=== PATIENT | female | born 1970 | race African-American/Black ===

== ENCOUNTER 2016-07-15 13:49 | Emergency (ER) | payer MEDICARE, OTHER ==
[~2016-07-15] VITALS: Ht 152.4 cm; Wt 50.0 kg
[~2016-07-15 13:49] MED LIST: ERGO50000 PO; FENT25DI T-DERMAL; FEXO60TA PO; LISI-360 PO; OXYB5TAB PO; PROT40TA PO; SOMA350T PO
[2016-07-15 13:51] VITALS: BP 168/87; PULSE 138; RESP 18; TEMP 98; O2SAT 99
[2016-07-15 14:52] LABS: AUTOMATED NEUTROPHIL # 2.7 TH/MM3 (1.8-7.7); BASOPHIL % 0.6 % (0.0-2.0); EOSINOPHIL % 0.7 % (0.0-4.0); HEMO FLAGS DIFF FINAL; LYMPH % 22.6 % (9.0-44.0); LYMPHOCYTE # 0.9 TH/MM3 (1.0-4.8); MEAN CELL VOLUME 83.3 FL (80.0-100.0); MEAN CORPUSCULAR HEMOGLOBIN 28.1 PG (27.0-34.0); MEAN CORPUSCULAR HGB CONC 33.7 % (32.0-36.0); MONO % 11.5 % (0.0-8.0); NEUT % 64.6 % (16.0-70.0); PLATELET COUNT 183 TH/MM3 (150-450); RED BLOOD COUNT 4.68 MIL/MM3 (4.00-5.30); WHITE BLOOD COUNT 4.1 TH/MM3 (4.0-11.0)
[2016-07-15 15:18] LABS: ANION GAP 6 MEQ/L (5-15); BICARBONATE 29.2 MEQ/L (21.0-32.0); BLOOD UREA NITROGEN 6 MG/DL (7-18); CHLORIDE 103 MEQ/L (98-107); GLOMERULAR FILTRATION RATE 130 ML/MIN (>89); POTASSIUM 3.3 MEQ/L (3.5-5.1); SODIUM (NA) 138 MEQ/L (136-145)
[2016-07-15 15:24] LABS: CREATINE KINASE 85 U/L (26-192)
--- NOTE | 2016-07-15 15:25 | RADRPT ---
EXAM DATE/TIME: 07/15/2016 14:38 [facility] COMPARISON: CHEST SINGLE AP, May 03, 2016, 11:59. INDICATIONS : Chest pain, feeling of aspiration when eating. MEDICAL HISTORY : Gastroesophageal reflux disease. SURGICAL HISTORY : None. ENCOUNTER: Initial ACUITY: 1 week PAIN SCORE: 6/10 LOCATION: Bilateral chest FINDINGS: A single view of the chest demonstrates the lungs to be symmetrically aerated without evidence of mas s, infiltrate or effusion. The cardiomediastinal contours are unremarkable. Osseous structures are intact. Cervical fusion hardware is again noted. CONCLUSION: No acute disease. Dejon Noriega MD on July 15, 2016 at 15:22 Board Certified Radiologist. This report was verified electronically.
[2016-07-15 15:28] LABS: BLOOD, URINE NEG (NEG); GLUCOSE,URINE NEG (NEG); HYALINE CAST, URINE 6 /lpf (RARE); KETONE, URINE 40 mg/dL (NEG); MUCUS URINE MANY /lpf (OCC); NITRITE,URINE NEG (NEG); PH, URINE 5.5 (5.0-8.5); SQUAMOUS EPITHELIAL CELL URINE 1 /hpf (0-5); URINE COLOR YELLOW (YELLW/STRAW)
[2016-07-15 15:30] LABS: COMMENT (UR) CULT NOT INDICATED; CULTURE IF INDICATED CULT NOT INDICATED
--- NOTE | 2016-07-15 15:55 | PD ---
HPI Chief Complaint: GI Complaint Time Seen by Provider: 15:30 Travel History International Travel<30 days: No Contact w/Intl Traveler<30days: No Traveled to known affect area: No History of Present Illness HPI Patient is a 45-year-old female who presents emergency for evaluation of decreased appetite, dysphasia, and epigastric abdominal pain. Patient states that she has a foul taste in her mouth which caused her to not want to eat. She reports substernal burning as well. Patient is able to swallow foods that are "slimy". She states that she is unable to swallow foods that are hard. She is able to control her secretions. She is currently followed by a coal tower operator at the [facility] and is taking omeprazole 40 mg daily. Patient reports compliance with this medication. She cannot remember the name of her coal tower operator. She did state that her GI doctor told her to call the office when she experienced the symptoms again in order to have an upper endoscopy performed. Of note patient is also reporting mucousy bowel movements X4 today. PFSH Past Medical History Arthritis: Yes (possible rheumatoid arthritis) Asthma: Yes Blood Disorders: No Anxiety: Yes Depression: Yes Heart Rhythm Problems: No Cancer: No Cardiac Catheterization: No High Cholesterol: No Chest Pain: Yes Congestive Heart Failure: No Diabetes: No Diminished Hearing: No Endocrine: No GERD: Yes Hypertension: Yes Immune Disorder: No Musculoskeletal: No Neurologic: Yes (final cyanosis) Immunizations Current: No Pneumonia: Yes Thyroid Disease: No : 5 Para: 4 Miscarriage: 1 Tubal Ligation: Yes Past Surgical History Coronary Artery Bypass Graft: No Hysterectomy: Yes (partial) Neurologic Surgery: Yes (cervical FUSION 2013) Oral Surgery: Yes (WISDOM TOOTH REMOVAL) Other Surgery: Yes (toe surgery) Social History Alcohol Use: No Tobacco Use: No Substance Use: No Allergies-Medications (Allergen,Severity, Reaction): Coded Allergies: Cantaloupe (Verified Allergy, Severe, EDEMA THROAT, 07/15/16) Egg White (Verified Allergy, Severe, SHOCK, 07/15/16) PEANUTS (Verified Allergy, Severe, SHOCK, 07/15/16) Pea (Verified Allergy, Severe, THROAT CLOSES, 07/15/16) Shellfish (Verified Allergy, Severe, THROAT CLOSES, 07/15/16) Xochitl Nut (Verified Allergy, Intermediate, THROAT CLOSES, 07/15/16) Benadryl (Verified Allergy, Mild, ITCHY AND SWEATY, 07/15/16) Lortab (Verified Allergy, Mild, ITCHING AND SWEATING, 07/15/16) Bactrim (Verified Allergy, Unknown, Rash, 07/15/16) Tramadol (Verified Adverse Reaction, Severe, 07/15/16) FLUSHING Reported Meds & Prescriptions Reported Meds & Active Scripts Active Reported Omeprazole 40 Mg Cap 40 Mg PO DAILY Chelle Allergy (Fexofenadine HCl) 60 Mg Tab 60 Mg PO BID Fentanyl Patch 72 HR (Fentanyl) 25 Mcg/Hr Patch 25 Mcg T-DERMAL Q72H Drisdol (Ergocalciferol) 50,000 Unit Cap 50,000 Units PO Q7D Soma (Carisoprodol) 350 Mg Tab 350 Mg PO DAILY PRN Review of Systems Except as stated in HPI: all other systems reviewed are Neg General / Constitutional: No: Fever, Chills Cardiovascular: No: Chest Pain or Discomfort Respiratory: No: Shortness of Breath Gastrointestinal: Positive: Nausea, Diarrhea, Abdominal Pain (and epigastrium) , Changes in Bowel Habits, Indigestion, Dysphagia, Loss of Appetite, No: Vomiting Neurologic: Positive: Weakness Physical Exam Narrative GENERAL: Thin, well-developed, alert female. Resting comfortably in no acute distress. SKIN: Warm and dry. HEAD: Atraumatic. Normocephalic. EYES: Pupils equal and round. No scleral icterus. No injection or drainage. ENT: No nasal bleeding or discharge. Mucous membranes pink and moist. NECK: Trachea midline. No JVD. CARDIOVASCULAR: Tachycardic. No murmur appreciated. RESPIRATORY: No accessory muscle use. Clear to auscultation. Breath sounds equal bilaterally. No stridor noted GASTROINTESTINAL: Abdomen soft, tender to palpation in epigastrium, nondistended. Hepatic and splenic margins not palpable. Positive bowel sounds, no rebound, no guarding. MUSCULOSKELETAL: No obvious deformities. No clubbing. No cyanosis. No edema. NEUROLOGICAL: Awake and alert. No obvious cranial nerve deficits. Motor grossly within normal limits. Normal speech. PSYCHIATRIC: Appropriate mood and affect; insight and judgment normal. Data Data Last Documented VS Vital Signs Date Time Temp Pulse Resp B/P Pulse Ox O2 Delivery O2 Flow Rate FiO2 07/15/16 18:00 96 19 148/72 98 Room Air 07/15/16 13:51 98.0 Orders Electrocardiogram (07/15/16 ) Complete Blood Count With Diff (07/15/16 14:24) Basic Metabolic Panel (Bmp) (07/15/16 14:24) Ckmb (Isoenzyme) Profile (07/15/16 14:24) Troponin I (07/15/16 14:24) Chest, Single Ap (07/15/16 14:24) Urinalysis - C+S If Indicated (07/15/16 15:01) Soft Tissue Neck (07/15/16 ) Iv Access Insert/Monitor (07/15/16 15:47) Ranitidine Liq (Zantac Liq) (07/15/16 16:00) Potassium Chloride (Kcl) (07/15/16 16:30) Hepatic Functional Panel (07/15/16 14:36) Ondansetron Inj (Zofran Inj) (07/15/16 17:00) Lipase (07/15/16 17:09) Lipase (07/15/16 14:36) Labs Laboratory Tests Test 07/15/16 07/15/16 14:00 14:36 Urine Color YELLOW Urine Turbidity CLEAR Urine pH 5.5 Urine Specific [place] 1.008 Urine Protein NEG mg/dL Urine Glucose (UA) NEG mg/dL Urine Ketones 40 mg/dL Urine Occult Blood NEG Urine Nitrite NEG Urine Bilirubin NEG Urine Urobilinogen LESS THAN 2.0 MG/DL Urine Leukocyte Esterase NEG Urine RBC LESS THAN 1 /hpf Urine WBC 2 /hpf Urine Squamous Epithelial 1 /hpf Cells Urine Hyaline Casts 6 /lpf Urine Mucus MANY /lpf Microscopic Urinalysis Comment CULT NOT INDICATED White Blood Count 4.1 TH/MM3 Red Blood Count 4.68 MIL/MM3 Hemoglobin 13.2 GM/DL Hematocrit 39.0 % Mean Corpuscular Volume 83.3 FL Mean Corpuscular Hemoglobin 28.1 PG Mean Corpuscular Hemoglobin 33.7 % Concent Red Cell Distribution Width 14.0 % Platelet Count 183 TH/MM3 Mean Platelet Volume 9.0 FL Neutrophils (%) (Auto) 64.6 % Lymphocytes (%) (Auto) 22.6 % Monocytes (%) (Auto) 11.5 % Eosinophils (%) (Auto) 0.7 % Basophils (%) (Auto) 0.6 % Neutrophils # (Auto) 2.7 TH/MM3 Lymphocytes # (Auto) 0.9 TH/MM3 Monocytes # (Auto) 0.5 TH/MM3 Eosinophils # (Auto) 0.0 TH/MM3 Basophils # (Auto) 0.0 TH/MM3 CBC Comment DIFF FINAL Differential Comment Sodium Level 138 MEQ/L Potassium Level 3.3 MEQ/L Chloride Level 103 MEQ/L Carbon Dioxide Level 29.2 MEQ/L Anion Gap 6 MEQ/L Blood Urea Nitrogen 6 MG/DL Creatinine 0.60 MG/DL Estimat Glomerular Filtration 130 ML/MIN Rate Random Glucose 97 MG/DL Calcium Level 9.4 MG/DL Total Bilirubin 0.5 MG/DL Direct Bilirubin 0.2 MG/DL Indirect Bilirubin 0.3 MG/DL Aspartate Amino Transf 17 U/L (AST/SGOT) Alanine Aminotransferase 24 U/L (ALT/SGPT) Alkaline Phosphatase 47 U/L Total Creatine Kinase 85 U/L Troponin I LESS THAN 0.02 NG/ML Total Protein 8.1 GM/DL Albumin 4.4 GM/DL Lipase 63 U/L MDM Medical Decision Making Medical Screen Exam Complete: Yes Emergency Medical Condition: Yes Interpretation(s) Last Impressions Chest X-Ray 07/15/16 1424 Signed Impressions: Service Date/Time: Friday, July 15, 2016 14:38 - CONCLUSION: No acute disease. Dejon Noriega MD Soft Tissue Neck X-Ray 07/15/16 0000 Signed Impressions: Service Date/Time: Friday, July 15, 2016 16:04 - CONCLUSION: 1. Anterior cervical fusion hardware from C4 through C7. 2. Cervical spondylosis at C3- C4. 3. No acute fracture or prevertebral soft-tissue swelling. Dejon Noriega MD Laboratory Tests Test 07/15/16 07/15/16 14:00 14:36 Urine Color YELLOW Urine Turbidity CLEAR Urine pH 5.5 Urine Specific [place] 1.008 Urine Protein NEG mg/dL Urine Glucose (UA) NEG mg/dL Urine Ketones 40 mg/dL Urine Occult Blood NEG Urine Nitrite NEG Urine Bilirubin NEG Urine Urobilinogen LESS THAN 2.0 MG/DL Urine Leukocyte Esterase NEG Urine RBC LESS THAN 1 /hpf Urine WBC 2 /hpf Urine Squamous Epithelial 1 /hpf Cells Urine Hyaline Casts 6 /lpf Urine Mucus MANY /lpf Microscopic Urinalysis Comment CULT NOT INDICATED White Blood Count 4.1 TH/MM3 Red Blood Count 4.68 MIL/MM3 Hemoglobin 13.2 GM/DL Hematocrit 39.0 % Mean Corpuscular Volume 83.3 FL Mean Corpuscular Hemoglobin 28.1 PG Mean Corpuscular Hemoglobin 33.7 % Concent Red Cell Distribution Width 14.0 % Platelet Count 183 TH/MM3 Mean Platelet Volume 9.0 FL Neutrophils (%) (Auto) 64.6 % Lymphocytes (%) (Auto) 22.6 % Monocytes (%) (Auto) 11.5 % Eosinophils (%) (Auto) 0.7 % Basophils (%) (Auto) 0.6 % Neutrophils # (Auto) 2.7 TH/MM3 Lymphocytes # (Auto) 0.9 TH/MM3 Monocytes # (Auto) 0.5 TH/MM3 Eosinophils # (Auto) 0.0 TH/MM3 Basophils # (Auto) 0.0 TH/MM3 CBC Comment DIFF FINAL Differential Comment Sodium Level 138 MEQ/L Potassium Level 3.3 MEQ/L Chloride Level 103 MEQ/L Carbon Dioxide Level 29.2 MEQ/L Anion Gap 6 MEQ/L Blood Urea Nitrogen 6 MG/DL Creatinine 0.60 MG/DL Estimat Glomerular Filtration 130 ML/MIN Rate Random Glucose 97 MG/DL Calcium Level 9.4 MG/DL Total Bilirubin 0.5 MG/DL Direct Bilirubin 0.2 MG/DL Indirect Bilirubin 0.3 MG/DL Aspartate Amino Transf 17 U/L (AST/SGOT) Alanine Aminotransferase 24 U/L (ALT/SGPT) Alkaline Phosphatase 47 U/L Total Creatine Kinase 85 U/L Troponin I LESS THAN 0.02 NG/ML Total Protein 8.1 GM/DL Albumin 4.4 GM/DL Lipase 63 U/L Vital Signs Date Time Temp Pulse Resp B/P Pulse Ox O2 Delivery O2 Flow Rate FiO2 07/15/16 13:51 98.0 138 18 168/87 99 Room Air Differential Diagnosis Esophageal strictures versus GERD versus peptic ulcer disease versus mass versus other Narrative Course Patient is a 45-year-old female who presented to emergency department for evaluation of decreased appetite, difficulty swallowing, foul taste in her mouth , and epigastric abdominal pain. Patient has a history of acid reflux, she is currently on omeprazole and followed by GI. She said she is due to have an upper endoscopy performed. Patient is able to control her secretions. Initial EKG shows sinus tachycardia with a rate of 121. Patient placed on telemetry monitoring, continuous pulse oximetry, IV access is initiated. CBC is unremarkable, chemistry with potassium of 3.3, we'll give oral replacement. Urinalysis unremarkable. LFTs and lipase are pending. X-ray of the soft tissues of the neck are pending. X-ray of the soft tissues of the neck was negative for acute abnormality. LFTs and lipase are unremarkable. Patient will be discharged home, she is encouraged to follow-up with her GI doctor tomorrow. She is encouraged to return to emergency department for any new or worsening symptoms. She verbalized understanding of these instructions. She is to continue her home medications previously prescribed. She'll be provided with a prescription for ranitidine. Patient stable for discharge. Diagnosis Primary Impression: GERD (gastroesophageal reflux disease) Qualified Code: K21.9 - Gastroesophageal reflux disease, esophagitis presence not specified Referrals: Bottling Equipment Sales Representative 1 day Patient Instructions: Gastroesophageal Reflux Disease (ED), General Instructions Additional Instructions: Follow-up with her coal tower operator in 24 hours Return to emergency department for any new or worsening symptoms Take medications as directed Med/Other Pt SpecificInfo: Prescription(s) given Scripts Ranitidine 150 Mg [id number] Mg PO BID #60 TAB Ref 0 Prov:Casi Hudson 07/15/16 Disposition: 01 DISCHARGE HOME Condition: Stable Casi Hudson Jul 15, 2016 15:55
[2016-07-15 16:00] VITALS: BP 156/72; PULSE 105; RESP 20; O2SAT 97
[2016-07-15] MEDS ORDERED: RANITIDINE HCL SYRUP 150 MG/10 ML UDC PO ONE (16:00)
[2016-07-15] MEDS ORDERED: DRIS50002 PO (16:11)
[2016-07-15] MEDS ORDERED: FENT25DI T-DERMAL (16:11)
[2016-07-15] MEDS ORDERED: SOMA350T PO (16:11)
[2016-07-15] MEDS ORDERED: OMEP40CA2 PO (16:11)
[2016-07-15] MEDS ORDERED: ALLE60TA PO (16:11)
[2016-07-15] MEDS ORDERED: POTASSIUM CHLORIDE 10 MEQ CONTROLLED RELEASE TAB PO ONE (16:30)
--- NOTE | 2016-07-15 16:37 | PD ---
Data Data Last Documented VS Vital Signs Date Time Temp Pulse Resp B/P Pulse Ox O2 Delivery O2 Flow Rate FiO2 07/15/16 13:51 98.0 138 18 168/87 99 Room Air Orders Electrocardiogram (07/15/16 ) Complete Blood Count With Diff (07/15/16 14:24) Basic Metabolic Panel (Bmp) (07/15/16 14:24) Ckmb (Isoenzyme) Profile (07/15/16 14:24) Troponin I (07/15/16 14:24) Chest, Single Ap (07/15/16 14:24) Urinalysis - C+S If Indicated (07/15/16 15:01) Soft Tissue Neck (07/15/16 ) Hepatic Functional Panel (07/15/16 15:47) Lipase (07/15/16 15:47) Iv Access Insert/Monitor (07/15/16 15:47) Ranitidine Liq (Zantac Liq) (07/15/16 16:00) Potassium Chloride (Kcl) (07/15/16 16:30) Labs Laboratory Tests Test 07/15/16 07/15/16 14:00 14:36 Urine Color YELLOW Urine Turbidity CLEAR Urine pH 5.5 Urine Specific [place] 1.008 Urine Protein NEG mg/dL Urine Glucose (UA) NEG mg/dL Urine Ketones 40 mg/dL Urine Occult Blood NEG Urine Nitrite NEG Urine Bilirubin NEG Urine Urobilinogen LESS THAN 2.0 MG/DL Urine Leukocyte Esterase NEG Urine RBC LESS THAN 1 /hpf Urine WBC 2 /hpf Urine Squamous Epithelial 1 /hpf Cells Urine Hyaline Casts 6 /lpf Urine Mucus MANY /lpf Microscopic Urinalysis Comment CULT NOT INDICATED White Blood Count 4.1 TH/MM3 Red Blood Count 4.68 MIL/MM3 Hemoglobin 13.2 GM/DL Hematocrit 39.0 % Mean Corpuscular Volume 83.3 FL Mean Corpuscular Hemoglobin 28.1 PG Mean Corpuscular Hemoglobin 33.7 % Concent Red Cell Distribution Width 14.0 % Platelet Count 183 TH/MM3 Mean Platelet Volume 9.0 FL Neutrophils (%) (Auto) 64.6 % Lymphocytes (%) (Auto) 22.6 % Monocytes (%) (Auto) 11.5 % Eosinophils (%) (Auto) 0.7 % Basophils (%) (Auto) 0.6 % Neutrophils # (Auto) 2.7 TH/MM3 Lymphocytes # (Auto) 0.9 TH/MM3 Monocytes # (Auto) 0.5 TH/MM3 Eosinophils # (Auto) 0.0 TH/MM3 Basophils # (Auto) 0.0 TH/MM3 CBC Comment DIFF FINAL Differential Comment Sodium Level 138 MEQ/L Potassium Level 3.3 MEQ/L Chloride Level 103 MEQ/L Carbon Dioxide Level 29.2 MEQ/L Anion Gap 6 MEQ/L Blood Urea Nitrogen 6 MG/DL Creatinine 0.60 MG/DL Estimat Glomerular Filtration 130 ML/MIN Rate Random Glucose 97 MG/DL Calcium Level 9.4 MG/DL Total Creatine Kinase 85 U/L Troponin I LESS THAN 0.02 NG/ML MDM Supervised Visit with GIUSEPPE: Yes Narrative Course I, Dr. Carrera, have reviewed the advance practice practioner's documentation and am in agreement, met with the patient face to face, made the diagnosis, and the medical decision making was done by me. *My assessment and Findings: 45-year-old female here with complaint of burning epigastric discomfort, reflux, dysphasia. Symptoms have been present for the last 1.5 weeks. Patient states that soft, slightly foods or the easiest to swallow. She notes a history of difficulty swallowing intermittently, and attributes this to having previous cervical spine fusion. She has previously seen GI at [facility], mostly recently 1 month ago and is on a PPI which she states she has been compliant with. She never had an endoscopy. Patient's exam is unremarkable. She does have limited neck flexion due to previous cervical spine fusion. No thyromegaly she is able to tolerate her secretions and swallow water on exam without any difficulty. Symptoms sound most like reflux, differential includes gastritis, pancreatitis, hepatobiliary pathology, dysphasia, achalasia, stricture. If laboratory workup, imaging unremarkable will discharge to home with outpatient GI follow-up. Nga Carrera MD Jul 15, 2016 16:37
--- NOTE | 2016-07-15 16:40 | RADRPT ---
EXAM DATE/TIME: 07/15/2016 16:04 [facility] COMPARISON: No previous studies available for comparison. INDICATIONS : Dysphagia MEDICAL HISTORY : Gastroesophageal reflux disease. SURGICAL HISTORY : Fusion, cervical. ENCOUNTER: Initial ACUITY: 1 day PAIN SCORE: 6/10 LOCATION: Bilateral neck FINDINGS: Anterior cervical fusion hardware is noted from C4 through C7. There is no fracture or prevertebral soft-tissue swelling. Cervical spondylosis is noted at C3-C4. CONCLUSION: 1. Anterior cervical fusion hardware from C4 through C7. 2. Cervical spondylosis at C3-C4. 3. No acute fracture or prevertebral soft-tissue swelling. Dejon Noriega MD on July 15, 2016 at 16:24 Board Certified Radiologist. This report was verified electronically.
[2016-07-15 16:51] LABS: AST (GOT) 17 U/L (15-37)
[2016-07-15 16:52] LABS: TOTAL BILIRUBIN ADULT 0.5 MG/DL (0.2-1.0)
[2016-07-15] MEDS ORDERED: ONDANSETRON HCL 4 MG/2 ML VIAL IM ONE (17:00)
[2016-07-15 17:07] LABS: ALT (GPT) 24 U/L (10-53); INDIRECT BILIRUBIN 0.3 MG/DL (0.0-0.8)
[2016-07-15 17:08] LABS: ALKALINE PHOSPHATASE 47 U/L (45-117)
[2016-07-15 18:00] VITALS: BP 148/72; PULSE 96; RESP 19; O2SAT 98
[2016-07-15] MEDS ORDERED: RANI150T PO (18:14)
--- NOTE | 2016-07-15 21:33 | EKG ---
Date Performed: 07/15/2016 Time Performed: 14:14:54 PTAGE: 45 years EKG: SINUS TACHYCARDIA ABNORMAL RHYTHM ECG PREVIOUS TRACING : 05/03/2016 18.19 Compared to previous tracing, heart rate has increased. DOCTOR: Alex Mendoza Interpretating Date/Time 07/15/2016 21:31:56
== END 2016-07-15 18:27 | disposition home or self-care (01) ==
LOC: NEPC 13:49
DX: K21.9 Gastro-esophageal reflux disease without esophagitis (principal); R00.0 Tachycardia, unspecified; J45.909 Unspecified asthma, uncomplicated; I10 Essential (primary) hypertension; R13.10 Dysphagia, unspecified
CPT/HCPCS: 70360; 71010; 80048; 80076; 81001; 82550; 83690; 84484; 84703; 85025; 93005; 96372; 99284; J2405

== ENCOUNTER 2016-08-25 15:38 | Emergency (ER) | payer MEDICARE, OTHER ==
[~2016-08-25] VITALS: Ht 152.4 cm; Wt 52.0 kg
[~2016-08-25 15:38] MED LIST changes: +ALLE60TA PO; +DRIS50002 PO; -ERGO50000 PO; -FEXO60TA PO; -LISI-360 PO; +OMEP40CA2 PO; -OXYB5TAB PO; -PROT40TA PO; +RANI150T PO
[2016-08-25 15:41] VITALS: BP 181/74; PULSE 84; RESP 18; TEMP 97.4; O2SAT 100
[2016-08-25] MEDS ORDERED: PROZ20CA11 PO (15:56)
[2016-08-25] MEDS ORDERED: HYDR-3535 PO (15:57)
[2016-08-25 16:01] VITALS: BP 157/78; PULSE 95; RESP 16; O2SAT 100
[2016-08-25] MEDS ORDERED: ONDANSETRON ODT 4 MG TAB PO ONE (16:15)
--- NOTE | 2016-08-25 16:26 | PD ---
HPI Chief Complaint: Cold / Flu Symptoms Time Seen by Provider: 16:02 Travel History International Travel<30 days: No Contact w/Intl Traveler<30days: No Traveled to known affect area: No History of Present Illness HPI 45-year-old female presents with cough, congestion, bodyaches and nonbloody emesis over the past couple of weeks. She denies other concurrent complaints. She states she feels worse when she moves around. She denies other modifying factors. Duration is couple weeks. Quality is nonbloody. Severity is couple episodes. PFSH Past Medical History Arthritis: Yes (RA) Asthma: Yes Blood Disorders: No Anxiety: Yes Depression: Yes Heart Rhythm Problems: No Cancer: No Cardiac Catheterization: No High Cholesterol: No Chest Pain: Yes Congestive Heart Failure: No Diabetes: No Diminished Hearing: No Endocrine: No Gastrointestinal Disorders: Yes GERD: Yes Heparin Induced Thrombocytopen: No Hypertension: Yes Immune Disorder: No Musculoskeletal: No Neurologic: Yes (SPINAL STENOSIS) Immunizations Current: No Pneumonia: Yes Thyroid Disease: No Tetanus Vaccination: Unknown Influenza Vaccination: No ?: Not : 5 Para: 4 Miscarriage: 1 Tubal Ligation: Yes Past Surgical History Coronary Artery Bypass Graft: No Hysterectomy: Yes Neurologic Surgery: Yes (CERVICAL FUSION 2013) Oral Surgery: Yes (WISDOM TOOTH REMOVAL) Other Surgery: Yes (toe surgery) Family History Family Myocardial Infarction: Yes Social History Alcohol Use: No Tobacco Use: No Substance Use: No Allergies-Medications (Allergen,Severity, Reaction): Coded Allergies: Cantaloupe (Verified Allergy, Severe, EDEMA THROAT, 07/15/16) Egg White (Verified Allergy, Severe, SHOCK, 07/15/16) PEANUTS (Verified Allergy, Severe, SHOCK, 07/15/16) Pea (Verified Allergy, Severe, THROAT CLOSES, 07/15/16) Shellfish (Verified Allergy, Severe, THROAT CLOSES, 07/15/16) Xochitl Nut (Verified Allergy, Intermediate, THROAT CLOSES, 07/15/16) Benadryl (Verified Allergy, Mild, ITCHY AND SWEATY, 07/15/16) Lortab (Verified Allergy, Mild, ITCHING AND SWEATING, 07/15/16) Bactrim (Verified Allergy, Unknown, Rash, 07/15/16) Tramadol (Verified Adverse Reaction, Severe, 07/15/16) FLUSHING Reported Meds & Prescriptions Reported Meds & Active Scripts Active Zofran Odt (Ondansetron Odt) 4 Mg Tab 4 Mg SL Q6HR PRN Ranitidine (Ranitidine HCl) 150 Mg Tab 150 Mg PO BID Reported Lortab (Hydrocodone-Acetaminophen) 10-325 Mg Tab 1 Tab PO Q4H PRN Prozac (Fluoxetine HCl) 20 Mg Cap 30 Mg PO DAILY Omeprazole 40 Mg Cap 40 Mg PO DAILY Chelle Allergy (Fexofenadine HCl) 60 Mg Tab 60 Mg PO BID Fentanyl Patch 72 HR (Fentanyl) 25 Mcg/Hr Patch 25 Mcg T-DERMAL Q72H Drisdol (Ergocalciferol) 50,000 Unit Cap 50,000 Units PO Q7D Soma (Carisoprodol) 350 Mg Tab 350 Mg PO DAILY PRN Review of Systems Except as stated in HPI: all other systems reviewed are Neg Physical Exam Narrative General: No apparent distress, well appearing ENT: Posterior oropharyngx clear without exudate or erythema, external auditory canals are normal. Bilateral TM clear, rhinorrhea noted Neck: Neck is supple, no meningeal signs, trachea is midline Cardiovascular: Regular rate and rhythm Lungs: No increased respiratory effort noted, CTA bilaterally Abdomen: Soft, NT, ND, no rebound or guarding Back: No step-offs, midline spine nontender, no CVA tenderness Extremities: No edema Neuro: Awake, motor and sensation grossly intact, normal speech Data Data Last Documented VS Vital Signs Date Time Temp Pulse Resp B/P Pulse Ox O2 Delivery O2 Flow Rate FiO2 08/25/16 16:01 95 16 157/78 100 Room Air 08/25/16 15:41 97.4 Orders Chest, Pa & Lat (08/25/16 ) Influenzae A/B Antigen (08/25/16 16:02) Ondansetron Odt (Zofran Odt) (08/25/16 16:15) MDM Medical Decision Making Medical Screen Exam Complete: Yes Emergency Medical Condition: Yes Medical Record Reviewed: Yes (pmh confirmed) Interpretation(s) Last 24 hours Impressions Chest X-Ray 08/25/16 0000 Signed Impressions: Service Date/Time: Thursday, August 25, 2016 16:24 - CONCLUSION: No acute disease. Mau Stark MD Differential Diagnosis Influenza, pneumonia, gastroenteritis... Narrative Course Will check influenza, chest x-ray and dose with Zofran and reevaluate cxr and flu are negative, no emesis here, Patient denies any new complaints and states that they are feeling better. Patient happy with care, all questions answered. Patient knows that follow up is incumbent on them and to return to the emergency room immediately if new or worsening symptoms develop. Patient given strict return precautions, vitals reviewed and are normal, agrees to further workup as an outpatient. Diagnosis Primary Impression: Upper respiratory infection Qualified Code: J06.9 - Upper respiratory tract infection, unspecified type Additional Impression: Vomiting Qualified Code: R11.2 - Non-intractable vomiting with nausea, unspecified vomiting type Referrals: Primary Care Physician call for appointment Patient Instructions: General Instructions Additional Instructions: return as needed, supportive care, zofran as needed for nausea Med/Other Pt SpecificInfo: Prescription(s) given Scripts Ondansetron Odt (Zofran Odt)4 Mg Tab4 Mg SL Q6HR PRN (Nausea/Vomiting) #10 TAB Prov:Meagan Haynes MD 08/25/16 Disposition: DISCHARGE HOME Condition: Stable Meagan Haynes MD Aug 25, 2016 16:26
--- NOTE | 2016-08-25 17:09 | RADRPT ---
EXAM DATE/TIME: 08/25/2016 16:24 [facility] COMPARISON: CHEST PA & LAT, August 24, 2013, 9:43. INDICATIONS : Cough and flu like symptoms MEDICAL HISTORY : Gastroesophageal reflux disease SURGICAL HISTORY : None. ENCOUNTER: Initial ACUITY: 1 day PAIN SCORE: 7/10 LOCATION: Bilateral chest FINDINGS: PA and lateral views of the chest demonstrate the lungs to be symmetrically aerated without evidence of mass, infiltrate or effusion. The cardiomediastinal contours are unremarkable. Osseous structure s are intact. CONCLUSION: No acute disease. Mau Stark MD on August 25, 2016 at 17:06 Board Certified Radiologist. This report was verified electronically.
[2016-08-25] MEDS ORDERED: ZOFR4TAB3 SL (17:15)
== END 2016-08-25 17:44 | disposition home or self-care (01) ==
LOC: NEPA 15:38
DX: J06.9 Acute upper respiratory infection, unspecified (principal); R11.10 Vomiting, unspecified; J45.909 Unspecified asthma, uncomplicated; I10 Essential (primary) hypertension; K21.9 Gastro-esophageal reflux disease without esophagitis
CPT/HCPCS: 71020; 87804; 99284

== ENCOUNTER 2017-02-03 11:23 | Emergency (ER) | payer OTHER, MEDICAID ==
[~2017-02-03] VITALS: Ht 152.4 cm; Wt 50.0 kg
[~2017-02-03 11:23] MED LIST changes: +HYDR-3535 PO; +PROZ20CA11 PO; +ZOFR4TAB3 SL
[2017-02-03 11:24] VITALS: BP 189/78; PULSE 84; RESP 24; TEMP 97.8; O2SAT 100
[2017-02-03] MEDS ORDERED: METHOCARBAMOL 500 MG TAB PO ONE (12:00)
[2017-02-03] MEDS ORDERED: SODIUM CHLORIDE 0.9% FLUSH 10 ML FLUSH IVF PRN (12:00)
[2017-02-03 12:19] LABS: BACTERIA, URINE RARE /hpf; BLOOD, URINE NEG (NEG); COMMENT (UR) CULTURE INDICATED; CULTURE IF INDICATED CULTURE INDICATED; GLUCOSE,URINE NEG (NEG); KETONE, URINE NEG (NEG); MUCUS URINE FEW /lpf (OCC); NITRITE,URINE NEG (NEG); PH, URINE 6.5 (5.0-8.5); SQUAMOUS EPITHELIAL CELL URINE 11 /hpf (0-5); URINE COLOR YELLOW (YELLW/STRAW)
[2017-02-03 12:31] VITALS: O2SAT 97
[2017-02-03 12:47] LABS: AUTOMATED NEUTROPHIL # 3.1 TH/MM3 (1.8-7.7); BASOPHIL % 0.6 % (0.0-2.0); EOSINOPHIL % 0.9 % (0.0-4.0); HEMATOCRIT 38.1 % (35.0-46.0); HEMO FLAGS DIFF FINAL; LYMPH % 25.8 % (9.0-44.0); LYMPHOCYTE # 1.2 TH/MM3 (1.0-4.8); MEAN CELL VOLUME 84.5 FL (80.0-100.0); MEAN CORPUSCULAR HEMOGLOBIN 28.6 PG (27.0-34.0); MEAN CORPUSCULAR HGB CONC 33.9 % (32.0-36.0); MONO % 9.5 % (0.0-8.0); NEUT % 63.2 % (16.0-70.0); PLATELET COUNT 190 TH/MM3 (150-450); RED BLOOD COUNT 4.51 MIL/MM3 (4.00-5.30); RED CELL DISTRIBUTION WIDTH 14.1 % (11.6-17.2); WHITE BLOOD COUNT 4.8 TH/MM3 (4.0-11.0)
[2017-02-03] MEDS ORDERED: CEPH-460 PO (12:48)
--- NOTE | 2017-02-03 12:48 | PD ---
HPI Chief Complaint: Flank/Kidney Pain Time Seen by Provider: 11:38 Travel History International Travel<30 days: No Contact w/Intl Traveler<30days: No Traveled to known affect area: No History of Present Illness HPI 46-year-old female with history of spinal stenosis who presents the emergency department with complaint of right sided pain. Patient has had approximate 4 days of pain in the right flank/axillary region that extends into the right chest, right back and right shoulder. This is made worse with movement, and with deep inspiration. Patient states that she has been having some spasms in her right shoulder. She sees pain management and is on a fentanyl patch, Lortab. Historically she was also on Soma but was taken off of this approximately one month ago. She states that since, she has been having more spasm-type pain in the back, but nothing this localized. She denies any history of DVT, PE, leg swelling, recent travel. She notes some urinary frequency, but no dysuria. PFSH Past Medical History Arthritis: Yes (RA) Asthma: Yes Blood Disorders: No Anxiety: Yes Depression: Yes Heart Rhythm Problems: No Cancer: No Cardiac Catheterization: No High Cholesterol: No Chest Pain: Yes Congestive Heart Failure: No Diabetes: No Diminished Hearing: No Endocrine: No Gastrointestinal Disorders: Yes GERD: Yes Heparin Induced Thrombocytopen: No Hypertension: Yes Immune Disorder: No Musculoskeletal: No Neurologic: Yes (SPINAL STENOSIS) Immunizations Current: No Pneumonia: Yes Thyroid Disease: No ?: Not : 5 Para: 4 Miscarriage: 1 Tubal Ligation: Yes Past Surgical History Coronary Artery Bypass Graft: No Hysterectomy: Yes Neurologic Surgery: Yes (CERVICAL FUSION 2013) Oral Surgery: Yes (WISDOM TOOTH REMOVAL) Other Surgery: Yes Social History Alcohol Use: No Tobacco Use: No Substance Use: No Allergies-Medications (Allergen,Severity, Reaction): Coded Allergies: Cantaloupe (Verified Allergy, Severe, EDEMA THROAT, 02/03/17) Egg White (Verified Allergy, Severe, SHOCK, 02/03/17) PEANUTS (Verified Allergy, Severe, SHOCK, 02/03/17) Pea (Verified Allergy, Severe, THROAT CLOSES, 02/03/17) Shellfish (Verified Allergy, Severe, THROAT CLOSES, 02/03/17) Xochitl Nut (Verified Allergy, Intermediate, THROAT CLOSES, 02/03/17) Benadryl (Verified Allergy, Mild, ITCHY AND SWEATY, 02/03/17) Bactrim (Verified Allergy, Unknown, Rash, 02/03/17) Tramadol (Verified Adverse Reaction, Severe, 02/03/17) FLUSHING Reported Meds & Prescriptions Reported Meds & Active Scripts Active Keflex (Cephalexin) 500 Mg Capsule 500 Mg PO TID 7 Days Ranitidine (Ranitidine HCl) 150 Mg Tab 150 Mg PO BID Reported Lortab (Hydrocodone-Acetaminophen) 10-325 Mg Tab 1 Tab PO Q4H PRN Prozac (Fluoxetine HCl) 20 Mg Cap 30 Mg PO DAILY Chelle Allergy (Fexofenadine HCl) 60 Mg Tab 60 Mg PO BID Fentanyl Patch 72 HR (Fentanyl) 25 Mcg/Hr Patch 25 Mcg T-DERMAL Q72H Review of Systems Except as stated in HPI: all other systems reviewed are Neg Physical Exam Narrative GENERAL: Well-appearing female appearing younger than stated age in no acute distress SKIN: Focused skin assessment warm/dry. HEAD: Normocephalic. EYES: No scleral icterus. No injection or drainage. ENT: Mucous membranes pink and moist. NECK: Supple CARDIOVASCULAR: Regular rate and rhythm. No murmur appreciated. Tenderness to palpation of the right superior lateral chest wall. RESPIRATORY: No accessory muscle use. Clear to auscultation. Breath sounds equal bilaterally. GASTROINTESTINAL: Abdomen soft, non-tender, nondistended. Mild right CVA tenderness. MUSCULOSKELETAL: Pain with range of motion of the right shoulder, tenderness to palpation. Range of motion and strength are intact. Patient does have tenderness to palpation of the right scapular region, right anterior chest and in the right axilla. NEUROLOGICAL: Awake and alert. Normal speech. PSYCHIATRIC: Appropriate mood and affect; insight and judgment normal. Data Data Last Documented VS Vital Signs Date Time Temp Pulse Resp B/P Pulse Ox O2 Delivery O2 Flow Rate FiO2 02/03/17 14:40 89 17 132/65 99 Room Air 02/03/17 11:24 97.8 Orders Urinalysis - C+S If Indicated (02/03/17 11:40) Ed Urine Pregnancytest Poc (02/03/17 11:40) Electrocardiogram (02/03/17 11:58) Complete Blood Count With Diff (02/03/17 11:58) Comprehensive Metabolic Panel (02/03/17 11:58) D-Dimer (02/03/17 11:58) Lipase (02/03/17 11:58) Iv Access Insert/Monitor (02/03/17 11:58) Oximetry (02/03/17 11:58) Sodium Chloride 0.9% Flush (Ns Flush) (02/03/17 12:00) Methocarbamol (Robaxin) (02/03/17 12:00) Urine Culture (02/03/17 11:50) Ct Pulmonary Angiogram (02/03/17 ) Iohexol 350 Inj (Omnipaque 350 Inj) (02/03/17 15:13) Labs Laboratory Tests Test 02/03/17 02/03/17 11:50 12:30 Urine Color YELLOW Urine Turbidity HAZY Urine pH 6.5 Urine Specific [place] 1.014 Urine Protein TRACE mg/dL Urine Glucose (UA) NEG mg/dL Urine Ketones NEG mg/dL Urine Occult Blood NEG Urine Nitrite NEG Urine Bilirubin NEG Urine Urobilinogen 2.0 MG/DL Urine Leukocyte Esterase SMALL Urine RBC LESS THAN 1 /hpf Urine WBC 10 /hpf Urine Squamous Epithelial 11 /hpf Cells Urine Bacteria RARE /hpf Urine Mucus FEW /lpf Microscopic Urinalysis Comment CULTURE INDICATED White Blood Count 4.8 TH/MM3 Red Blood Count 4.51 MIL/MM3 Hemoglobin 12.9 GM/DL Hematocrit 38.1 % Mean Corpuscular Volume 84.5 FL Mean Corpuscular Hemoglobin 28.6 PG Mean Corpuscular Hemoglobin 33.9 % Concent Red Cell Distribution Width 14.1 % Platelet Count 190 TH/MM3 Mean Platelet Volume 8.9 FL Neutrophils (%) (Auto) 63.2 % Lymphocytes (%) (Auto) 25.8 % Monocytes (%) (Auto) 9.5 % Eosinophils (%) (Auto) 0.9 % Basophils (%) (Auto) 0.6 % Neutrophils # (Auto) 3.1 TH/MM3 Lymphocytes # (Auto) 1.2 TH/MM3 Monocytes # (Auto) 0.5 TH/MM3 Eosinophils # (Auto) 0.0 TH/MM3 Basophils # (Auto) 0.0 TH/MM3 CBC Comment DIFF FINAL Differential Comment D-Dimer Quantitative (PE/DVT) 0.62 MG/L FEU Sodium Level 139 MEQ/L Potassium Level 3.5 MEQ/L Chloride Level 103 MEQ/L Carbon Dioxide Level 29.4 MEQ/L Anion Gap 7 MEQ/L Blood Urea Nitrogen 8 MG/DL Creatinine 0.72 MG/DL Estimat Glomerular Filtration 105 ML/MIN Rate Random Glucose 85 MG/DL Calcium Level 10.3 MG/DL Total Bilirubin 0.4 MG/DL Aspartate Amino Transf 23 U/L (AST/SGOT) Alanine Aminotransferase 23 U/L (ALT/SGPT) Alkaline Phosphatase 57 U/L Total Protein 9.2 GM/DL Albumin 4.4 GM/DL Lipase 83 U/L [facility] Medical Decision Making Medical Screen Exam Complete: Yes Emergency Medical Condition: Yes Medical Record Reviewed: Yes Differential Diagnosis 46-year-old female with history of chronic back pain due to spinal stenosis here with 4 days of right sided chest/back/shoulder/flank pain worse with movement and inspiration. Her pain is quite reproducible on exam and my strong suspicion is that this is musculoskeletal. Differential includes PE, ureterolithiasis, UTI/pyelonephritis. She does not have any respiratory symptoms to suspect pneumonia. Narrative Course Patient placed on monitor, IV established and blood obtained. A twelve-lead EKG shows sinus rhythm without notable ST or T-wave abnormalities and normal intervals. Patient given Robaxin. CBC, CMP, lipase, d-dimer, urinalysis and urine test were notable for leukocyte Estrace, with white cells and bacteria in the urine. D-dimer elevated 0.62. CT pulmonary angiogram was negative. Patient reassured, treated for musculoskeletal etiology and discharged home. Diagnosis Primary Impression: Musculoskeletal chest pain Additional Impression: UTI (urinary tract infection) Qualified Code: N30.00 - Acute cystitis without hematuria Referrals: Pain Management call for appointment Additional Instructions: Finish antibiotics for urinary tract infection as prescribed. Follow-up with pain management for further management of chronic pain. Med/Other Pt SpecificInfo: Prescription(s) given Scripts Cephalexin (Keflex)500 Mg [id number] Mg PO TID 7 Days Ref 0 Prov:Nga Carrera MD 02/03/17 Disposition: 01 DISCHARGE HOME Condition: Stable Nga Carrera MD Feb 03, 2017 12:48
[2017-02-03 13:12] LABS: ALT (GPT) 23 U/L (10-53); ANION GAP 7 MEQ/L (5-15); AST (GOT) 23 U/L (15-37); BICARBONATE 29.4 MEQ/L (21.0-32.0); BLOOD UREA NITROGEN 8 MG/DL (7-18); CHLORIDE 103 MEQ/L (98-107); GLOMERULAR FILTRATION RATE 105 ML/MIN (>89); POTASSIUM 3.5 MEQ/L (3.5-5.1); SODIUM (NA) 139 MEQ/L (136-145)
[2017-02-03 13:14] LABS: ALKALINE PHOSPHATASE 57 U/L (45-117); TOTAL BILIRUBIN ADULT 0.4 MG/DL (0.2-1.0)
[2017-02-03 14:40] VITALS: BP 132/65; PULSE 89; RESP 17; O2SAT 99
[2017-02-03] MEDS ORDERED: IOHEXOL 350 MG/ML 10 ML VIAL (for RAD DIAG) IV ONE (15:13)
--- NOTE | 2017-02-03 15:23 | RADRPT ---
EXAM DATE/TIME: 02/03/2017 15:05 [facility] COMPARISON: No previous studies available for comparison. INDICATIONS : Chest pain. IV CONTRAST: 75 cc Omnipaque 350 (iohexol) IV RADIATION DOSE: 21.30 CTDIvol (mGy) MEDICAL HISTORY : Spinal stenosis. SURGICAL HISTORY : Hysterectomy. Cervical fusion. ENCOUNTER: Initial ACUITY: 1 day PAIN SCALE: 4/10 LOCATION: Right chest TECHNIQUE: Volumetric scanning of the chest was performed using a pulmonary embolism protocol MIP images were re constructed. Using automated exposure control and adjustment of the mA and/or kV according to patien t size, radiation dose was kept as low as reasonably achievable to obtain optimal diagnostic quality images. DICOM format image data is available electronically for review and comparison. Follow-up recommendations for incidentally detected pulmonary nodules are based at a minimum on nodul e size and patient risk factors according to Fleischner Society Guidelines. FINDINGS: PULMONARY ARTERIES: No filling defects are seen in the pulmonary arteries through the segmental level. LUNGS: There is no consolidation or pneumothorax . No concerning pulmonary nodule is visualized. PLEURAE: There is no pleural thickening or pleural effusion. MEDIASTINUM: There is good visualization of the great vessels of the middle mediastinum. No evidence of mediastin al or hilar adenopathy/mass. MUSCULOSKELETAL: Mild scoliosis and degenerative changes of the thoracic spine are noted. MISCELLANEOUS: The visualized upper abdominal organs demonstrate no acute abnormality. CONCLUSION: 1. No evidence of pulmonary embolism. 2. No focal pulmonary infiltrate or pulmonary vascular congestion. 3. Degenerative changes and scoliosis of the thoracic spine. Dejon Noriega MD on February 03, 2017 at 15:18 Board Certified Radiologist. This report was verified electronically.
--- NOTE | 2017-02-04 15:44 | EKG ---
Date Performed: 02/03/2017 Time Performed: 12:22:39 PTAGE: 46 years EKG: Sinus rhythm POSSIBLE RIGHT VENTRICULAR CONDUCTION DELAY BORDERLINE ECG PREVIOUS TRACING : 07/15/2016 14.14 Compared to previous tracing, sinus rate has slowed. DOCTOR: Yosvany Greene Interpretating Date/Time 02/04/2017 15:43:51
== END 2017-02-03 15:56 | disposition home or self-care (01) ==
LOC: NEPD 11:23
DX: R07.89 Other chest pain (principal); N30.00 Acute cystitis without hematuria; B96.89 Other specified bacterial agents as the cause of diseases classified elsewhere
CPT/HCPCS: 71275; 80053; 81001; 83690; 84703; 85025; 85379; 87086; 93005; 99285; Q9967

== ENCOUNTER 2017-03-25 11:13 | Emergency (ER) | payer OTHER, MEDICAID ==
[~2017-03-25] VITALS: Ht 152.4 cm; Wt 50.0 kg
[~2017-03-25 11:13] MED LIST changes: +CEPH-460 PO; -DRIS50002 PO; -OMEP40CA2 PO; -SOMA350T PO; -ZOFR4TAB3 SL
[2017-03-25 11:15] VITALS: BP 169/80; PULSE 98; RESP 24; TEMP 98.7; O2SAT 100
[2017-03-25] MEDS ORDERED: PERC10TA27 PO (11:59)
--- NOTE | 2017-03-25 12:18 | PD ---
HPI . nausea and vomiting since last night Chief Complaint: GI Complaint Time Seen by Provider: 12:18 Travel History International Travel<30 days: No Contact w/Intl Traveler<30days: No Traveled to known affect area: No History of Present Illness HPI 46-year-old female with past medical history of GERD, spinal stenosis and multiple allergies here with complaints of nausea and vomiting since last night. Patient tells me since yesterday evening she has vomited approximately 6 times. She tells me that she felt like she had flulike symptoms late last week, therefore went to her doctor at [facility] and was given vitamin C, Robitussin and some medication that starts with S. She is uncertain of the exact name of the medication and tells me that it even cause her a localized reaction to her face. She was doing fine, and yesterday she developed sudden onset of nausea and vomiting. She also reports some abdominal discomfort. She says some of her symptoms feel GERD like, however it's more pronounced than usual. She denies any chest pain, sob, or other symptoms. PFSH Past Medical History Arthritis: Yes (RA) Asthma: Yes Blood Disorders: No Anxiety: Yes Depression: Yes Heart Rhythm Problems: No Cancer: No Cardiac Catheterization: No Cardiovascular Problems: Yes (htn) High Cholesterol: No Chest Pain: Yes Congestive Heart Failure: No Diabetes: No Diminished Hearing: No Endocrine: No Gastrointestinal Disorders: Yes GERD: Yes Genitourinary: Yes (UTI) Heparin Induced Thrombocytopen: No Hypertension: Yes Immune Disorder: No Musculoskeletal: No Neurologic: Yes (SPINAL STENOSIS) Psychiatric: Yes (WEEKLY THERAPY) Respiratory: Yes (ASTHMA) Immunizations Current: No Pneumonia: Yes Thyroid Disease: No Tetanus Vaccination: < 5 Years ?: Not : 5 Para: 4 Miscarriage: 1 Tubal Ligation: Yes Past Surgical History Coronary Artery Bypass Graft: No Hysterectomy: Yes Neurologic Surgery: Yes (CERVICAL FUSION 2013) Oral Surgery: Yes (WISDOM TOOTH REMOVAL) Other Surgery: Yes Family History Family Myocardial Infarction: Yes Social History Alcohol Use: No Tobacco Use: No Substance Use: No Allergies-Medications (Allergen,Severity, Reaction): Coded Allergies: egg (Unverified Allergy, Severe, SHOCK, 03/25/17) melon (Unverified Allergy, Severe, EDEMA THROAT, 03/25/17) peanut (Unverified Allergy, Severe, SHOCK, 03/25/17) peas (Unverified Allergy, Severe, THROAT CLOSES, 03/25/17) shellfish derived (Unverified Allergy, Severe, THROAT CLOSES, 03/25/17) hazelnut (Unverified Allergy, Intermediate, THROAT CLOSES, 03/25/17) diphenhydramine (Unverified Allergy, Mild, ITCHY AND SWEATY, 03/25/17) sulfamethoxazole (Unverified Allergy, Unknown, Rash, 03/25/17) trimethoprim (Unverified Allergy, Unknown, Rash, 03/25/17) tramadol (Unverified Adverse Reaction, Severe, 03/25/17) FLUSHING Reported Meds & Prescriptions Reported Meds & Active Scripts Active Zofran Odt (Ondansetron Odt) 4 Mg Tab 4 Mg SL Q8HR PRN Ranitidine (Ranitidine HCl) 150 Mg Tab 150 Mg PO BID Reported Percocet (Oxycodone-Acetaminophen) 10-325 mg Tab 1 Tab PO Q4H PRN Prozac (Fluoxetine HCl) 20 Mg Cap 30 Mg PO DAILY Chelle Allergy (Fexofenadine HCl) 60 Mg Tab 60 Mg PO BID Fentanyl Patch 72 HR (Fentanyl) 25 Mcg/Hr Patch 25 Mcg T-DERMAL Q72H Review of Systems General / Constitutional: No: Fever Eyes: No: Visual changes HENT: No: Headaches Cardiovascular: No: Chest Pain or Discomfort Respiratory: No: Shortness of Breath Gastrointestinal: Positive: Nausea, Vomiting, No: Abdominal Pain Genitourinary: No: Dysuria Musculoskeletal: No: Pain Skin: No Rash Neurologic: No: Weakness Psychiatric: No: Depression Endocrine: No: Polydipsia Hematologic/Lymphatic: No: Easy Bruising Physical Exam Narrative GENERAL: AAO x 3, no acute distress, Well-nourished, well-developed patient. SKIN: Warm and dry. No visible rashes or bruising. HEAD: Normocephalic and atraumatic. EYES: No scleral icterus. No injection or drainage. EOM intact, PERRLA ENT: No nasal drainage noted. Mucous membranes pink. Airway patent. NECK: Supple, trachea midline. No JVD. CARDIOVASCULAR: Regular rate and rhythm without murmurs, gallops, or rubs. RESPIRATORY: Breath sounds equal bilaterally. No accessory muscle use. No rhonchi or rales. GASTROINTESTINAL: tenderness in the RLQ and some guarding on exam; EXTREMITIES: No cyanosis or edema. BACK: No obvious deformity. No CVA tenderness. NEURO: CN II-12 intact, fancy wire drawer strength normal b/l, UE and LE 5/5, no focal deficits PSYCH: AAO x 3, normal affect. Data Data Last Documented VS Vital Signs Date Time Temp Pulse Resp B/P (MAP) Pulse Ox O2 Delivery O2 Flow Rate FiO2 03/25/17 12:29 99 03/25/17 11:15 98.7 98 24 Room Air Orders Orders Complete Blood Count With Diff (03/25/17 12:23) Comprehensive Metabolic Panel (03/25/17 12:23) Lipase (03/25/17 12:23) Urinalysis - C+S If Indicated (03/25/17 12:23) Ct Abd/Pel W Iv Contrast(Rout) (03/25/17 12:23) Iv Access Insert/Monitor (03/25/17 12:23) Ecg Monitoring (03/25/17 12:23) Oximetry (03/25/17 12:23) Sodium Chloride 0.9% Flush (Ns Flush) (03/25/17 12:30) Iohexol 350 Inj (Omnipaque 350 Inj) (03/25/17 13:04) Ondansetron Inj (Zofran Inj) (03/25/17 13:30) Labs Laboratory Tests Test 03/25/17 12:30 White Blood Count 4.9 TH/MM3 Red Blood Count 4.36 MIL/MM3 Hemoglobin 12.2 GM/DL Hematocrit 37.6 % Mean Corpuscular Volume 86.2 FL Mean Corpuscular Hemoglobin 27.9 PG Mean Corpuscular Hemoglobin Concent 32.4 % Red Cell Distribution Width 14.0 % Platelet Count 198 TH/MM3 Mean Platelet Volume 9.9 FL Neutrophils (%) (Auto) 54.2 % Lymphocytes (%) (Auto) 32.1 % Monocytes (%) (Auto) 11.7 % Eosinophils (%) (Auto) 1.5 % Basophils (%) (Auto) 0.5 % Neutrophils # (Auto) 2.7 TH/MM3 Lymphocytes # (Auto) 1.6 TH/MM3 Monocytes # (Auto) 0.6 TH/MM3 Eosinophils # (Auto) 0.1 TH/MM3 Basophils # (Auto) 0.0 TH/MM3 CBC Comment DIFF FINAL Differential Comment Urine Color LIGHT-YELLOW Urine Turbidity CLEAR Urine pH 8.0 Urine Specific [place] 1.006 Urine Protein NEG mg/dL Urine Glucose (UA) NEG mg/dL Urine Ketones NEG mg/dL Urine Occult Blood NEG Urine Nitrite NEG Urine Bilirubin NEG Urine Urobilinogen LESS THAN 2.0 MG/DL Urine Leukocyte Esterase NEG Urine RBC LESS THAN 1 /hpf Urine WBC 1 /hpf Urine Squamous Epithelial Cells 1 /hpf Microscopic Urinalysis Comment CULT NOT INDICATED Blood Urea Nitrogen 8 MG/DL Creatinine 0.70 MG/DL Random Glucose 84 MG/DL Total Protein 8.0 GM/DL Albumin 4.1 GM/DL Calcium Level 9.2 MG/DL Alkaline Phosphatase 43 U/L Aspartate Amino Transf (AST/SGOT) 26 U/L Alanine Aminotransferase (ALT/SGPT) 27 U/L Total Bilirubin 0.6 MG/DL Sodium Level 138 MEQ/L Potassium Level 4.6 MEQ/L Chloride Level 107 MEQ/L Carbon Dioxide Level 24.4 MEQ/L Anion Gap 7 MEQ/L Estimat Glomerular Filtration Rate 108 ML/MIN Lipase 63 U/L [facility] Medical Decision Making Medical Screen Exam Complete: Yes Emergency Medical Condition: Yes Medical Record Reviewed: Yes Differential Diagnosis gastroenteritis, pancreatitis, appendicitis Narrative Course 38-year-old female here with complaints of sudden onset of nausea, vomiting and abdominal pain. On examination she does have some tenderness in her right lower quadrant and guarding on exam. I do not suspect we will find any over abnormalities. I think she has some gastroenteritis. IV access was obtained. Labs and CT scan of the abdomen and pelvis have been ordered. Last Impressions Abdomen/Pelvis CT 03/25/17 1223 Signed Impressions: Service Date/Time: Saturday, March 25, 2017 12:56 - CONCLUSION: 1. No abnormality is identified to explain the clinical symptoms. There is trace free fluid in the pelvis. 2. There is a 3 mm nonobstructing right renal stone. Bobby Wellington MD Laboratory Tests Test 03/25/17 12:30 White Blood Count 4.9 TH/MM3 Red Blood Count 4.36 MIL/MM3 Hemoglobin 12.2 GM/DL Hematocrit 37.6 % Mean Corpuscular Volume 86.2 FL Mean Corpuscular Hemoglobin 27.9 PG Mean Corpuscular Hemoglobin Concent 32.4 % Red Cell Distribution Width 14.0 % Platelet Count 198 TH/MM3 Mean Platelet Volume 9.9 FL Neutrophils (%) (Auto) 54.2 % Lymphocytes (%) (Auto) 32.1 % Monocytes (%) (Auto) 11.7 % Eosinophils (%) (Auto) 1.5 % Basophils (%) (Auto) 0.5 % Neutrophils # (Auto) 2.7 TH/MM3 Lymphocytes # (Auto) 1.6 TH/MM3 Monocytes # (Auto) 0.6 TH/MM3 Eosinophils # (Auto) 0.1 TH/MM3 Basophils # (Auto) 0.0 TH/MM3 CBC Comment DIFF FINAL Differential Comment Urine Color LIGHT-YELLOW Urine Turbidity CLEAR Urine pH 8.0 Urine Specific [place] 1.006 Urine Protein NEG mg/dL Urine Glucose (UA) NEG mg/dL Urine Ketones NEG mg/dL Urine Occult Blood NEG Urine Nitrite NEG Urine Bilirubin NEG Urine Urobilinogen LESS THAN 2.0 MG/DL Urine Leukocyte Esterase NEG Urine RBC LESS THAN 1 /hpf Urine WBC 1 /hpf Urine Squamous Epithelial Cells 1 /hpf Microscopic Urinalysis Comment CULT NOT INDICATED Blood Urea Nitrogen 8 MG/DL Creatinine 0.70 MG/DL Random Glucose 84 MG/DL Total Protein 8.0 GM/DL Albumin 4.1 GM/DL Calcium Level 9.2 MG/DL Alkaline Phosphatase 43 U/L Aspartate Amino Transf (AST/SGOT) 26 U/L Alanine Aminotransferase (ALT/SGPT) 27 U/L Total Bilirubin 0.6 MG/DL Sodium Level 138 MEQ/L Potassium Level 4.6 MEQ/L Chloride Level 107 MEQ/L Carbon Dioxide Level 24.4 MEQ/L Anion Gap 7 MEQ/L Estimat Glomerular Filtration Rate 108 ML/MIN Lipase 63 U/L I have reviewed all of the results. There is no evidence of infection. CT abd/ pelvis normal. I think patient has a viral gastroenteritis. I explained her that this is self limiting. I encourage oral hydration. I recommend follow-up with primary care provider. I will give her some Zofran prior to discharge. Patient verbalized understanding of instructions, questions were answered, and thanked me for their care. I advised them if their condition worsens, please return to the nearest emergency room for further care. Diagnosis Primary Impression: Gastroenteritis Patient Instructions: General Instructions Additional Instructions: Please return to emergency department if your symptoms return or worsen. Follow up with your primary care provider. Take medications as prescribed. Med/Other Pt SpecificInfo: Prescription(s) given Scripts Ondansetron Odt (Zofran Odt) 4 Mg Tab 4 MG SL Q8HR Y for Nausea/Vomiting, #12 TAB 0 Refills Prov: Eyad Contreras MD 03/25/17 Disposition: 01 DISCHARGE HOME Condition: Stable Krystyna Fitch Mar 25, 2017 12:18
[2017-03-25 12:29] VITALS: O2SAT 99
[2017-03-25] MEDS ORDERED: SODIUM CHLORIDE 0.9% FLUSH 10 ML FLUSH IV FLUSH PRN (12:30)
[2017-03-25 12:48] LABS: AUTOMATED NEUTROPHIL # 2.7 TH/MM3 (1.8-7.7); BASOPHIL % 0.5 % (0.0-2.0); EOSINOPHIL # 0.1 TH/MM3 (0-0.4); EOSINOPHIL % 1.5 % (0.0-4.0); HEMATOCRIT 37.6 % (35.0-46.0); HEMO FLAGS DIFF FINAL; LYMPH % 32.1 % (9.0-44.0); LYMPHOCYTE # 1.6 TH/MM3 (1.0-4.8); MEAN CELL VOLUME 86.2 FL (80.0-100.0); MEAN CORPUSCULAR HEMOGLOBIN 27.9 PG (27.0-34.0); MEAN CORPUSCULAR HGB CONC 32.4 % (32.0-36.0); MONO % 11.7 % (0.0-8.0); NEUT % 54.2 % (16.0-70.0); PLATELET COUNT 198 TH/MM3 (150-450); RED BLOOD COUNT 4.36 MIL/MM3 (4.00-5.30); WHITE BLOOD COUNT 4.9 TH/MM3 (4.0-11.0)
[2017-03-25 12:50] LABS: BLOOD, URINE NEG (NEG); COMMENT (UR) CULT NOT INDICATED; CULTURE IF INDICATED CULT NOT INDICATED; GLUCOSE,URINE NEG (NEG); KETONE, URINE NEG (NEG); NITRITE,URINE NEG (NEG); SQUAMOUS EPITHELIAL CELL URINE 1 /hpf (0-5); URINE COLOR LIGHT-YELLOW (YELLW/STRAW)
[2017-03-25] MEDS ORDERED: IOHEXOL 350 MG/ML 10 ML VIAL (for RAD DIAG) IVCONTRAST ONE (13:04)
[2017-03-25 13:12] LABS: ALKALINE PHOSPHATASE 43 U/L (45-117); ALT (GPT) 27 U/L (10-53); TOTAL BILIRUBIN ADULT 0.6 MG/DL (0.2-1.0)
--- NOTE | 2017-03-25 13:23 | RADRPT ---
EXAM DATE/TIME: 03/25/2017 12:56 [facility] COMPARISON: No previous studies available for comparison. INDICATIONS : Vomiting. IV CONTRAST: 71 cc Omnipaque 350 (iohexol) IV ORAL CONTRAST: No oral contrast ingested. RADIATION DOSE: 9.96 CTDIvol (mGy) MEDICAL HISTORY : Hypertension. SURGICAL HISTORY : Hysterectomy. ENCOUNTER: Initial ACUITY: 1 day PAIN SCALE: 7/10 LOCATION: Bilateral abdomen TECHNIQUE: Volumetric scanning of the abdomen and pelvis was performed. Using automated exposure control and ad justment of the mA and/or kV according to patient size, radiation dose was kept as low as reasonably achievable to obtain optimal diagnostic quality images. DICOM format image data is available electro nically for review and comparison. FINDINGS: LOWER LUNGS: The visualized lower lungs are clear. LIVER: Homogeneous density without lesion. There is no dilation of the biliary tree. No calcified gallston es. SPLEEN: Normal size without lesion. PANCREAS: Within normal limits. KIDNEYS: Normal in size and shape. There is no mass or hydronephrosis. There is a 3 mm nonobstructing right r enal stone. A 2.5 cm simple left upper pole renal cyst is present. ADRENAL GLANDS: Within normal limits. VASCULAR: There is no aortic aneurysm. BOWEL/MESENTERY: The stomach, small bowel, and colon demonstrate no acute abnormality. There is no free intraperitone al air. Appendix is normal. There is trace free fluid in the pelvis. ABDOMINAL WALL: Within normal limits. RETROPERITONEUM: There is no lymphadenopathy. BLADDER: No wall thickening or mass. REPRODUCTIVE: Uterus is absent. No adnexal abnormality is seen. INGUINAL: There is no lymphadenopathy or hernia. MUSCULOSKELETAL: No acute abnormality. CONCLUSION: 1. No abnormality is identified to explain the clinical symptoms. There is trace free fluid in the pe lvis. 2. There is a 3 mm nonobstructing right renal stone. Bobby Wellington MD on March 25, 2017 at 13:17 Board Certified Radiologist. This report was verified electronically.
[2017-03-25] MEDS ORDERED: ONDANSETRON HCL 4 MG/2 ML VIAL IV PUSH ONE (13:30)
[2017-03-25 13:31] LABS: ANION GAP 7 MEQ/L (5-15); AST (GOT) 26 U/L (15-37); BICARBONATE 24.4 MEQ/L (21.0-32.0); CHLORIDE 107 MEQ/L (98-107); GLOMERULAR FILTRATION RATE 108 ML/MIN (>89); POTASSIUM 4.6 MEQ/L (3.5-5.1); SODIUM (NA) 138 MEQ/L (136-145)
[2017-03-25 13:33] LABS: BLOOD UREA NITROGEN 8 MG/DL (7-18)
[2017-03-25] MEDS ORDERED: ZOFR4TAB3 SL (13:47)
== END 2017-03-25 13:58 | disposition home or self-care (01) ==
LOC: NEPD 11:13
DX: K52.9 Noninfective gastroenteritis and colitis, unspecified (principal); J45.909 Unspecified asthma, uncomplicated; I10 Essential (primary) hypertension; N20.0 Calculus of kidney; K21.9 Gastro-esophageal reflux disease without esophagitis; M48.00 Spinal stenosis, site unspecified
CPT/HCPCS: 74177; 80053; 81001; 83690; 85025; 96374; 99285; J2405; Q9967

== ENCOUNTER 2017-06-25 22:17 | Emergency (ER) | payer OTHER, MEDICAID ==
[~2017-06-25] VITALS: Ht 152.4 cm; Wt 51.0 kg
[~2017-06-25 22:17] MED LIST changes: -CEPH-460 PO; -HYDR-3535 PO; +PERC10TA27 PO; +ZOFR4TAB3 SL
[2017-06-25 22:20] VITALS: BP 188/88; PULSE 90; RESP 16; TEMP 98.1; O2SAT 100
[2017-06-25] MEDS ORDERED: OXYB5TAB8 PO (22:41)
[2017-06-25] MEDS ORDERED: ROBA500T PO (22:42)
[2017-06-25] MEDS ORDERED: DIAZEPAM 10 MG TAB PO ONE (22:45)
--- NOTE | 2017-06-25 22:47 | PD ---
HPI Chief Complaint: Back/ Neck Pain or Injury Time Seen by Provider: 22:30 Travel History International Travel<30 days: No Contact w/Intl Traveler<30days: No Traveled to known affect area: No History of Present Illness HPI 46-year-old black female presents to the department complains of acute exacerbation of her chronic neck pain. Patient states that she's had worsening pain over the past week. She has been seen by her primary care doctor as well as her pain management doctor. Patient takes Percocet 10 mg for her chronic pain. She was seen by her primary care doctor who had added in Toradol. Her pain management doctor declined changing her medications. The patient states that her pain was exacerbated from driving one week ago. Patient denies any acute trauma. She states the pain is moderate to severe. Worse with movement. Pain radiates into her shoulders bilaterally. She has had a history of cervical fusion and she has had herniations of discs above and below her fusion. Patient denies any recent illness. PFSH Past Medical History Arthritis: Yes (RA) Asthma: Yes Blood Disorders: No Anxiety: Yes Depression: Yes Heart Rhythm Problems: No Cancer: No Cardiac Catheterization: No Cardiovascular Problems: Yes High Cholesterol: No Chest Pain: Yes Congestive Heart Failure: No Diabetes: No Diminished Hearing: No Endocrine: No Gastrointestinal Disorders: Yes GERD: Yes Genitourinary: Yes (UTI) Heparin Induced Thrombocytopen: No Hypertension: Yes Immune Disorder: No Musculoskeletal: No Neurologic: Yes (SPINAL STENOSIS) Psychiatric: Yes Respiratory: Yes (ASTHMA) Immunizations Current: No Pneumonia: Yes Thyroid Disease: No ?: Not : 5 Para: 4 Miscarriage: 1 Tubal Ligation: Yes Past Surgical History Coronary Artery Bypass Graft: No Hysterectomy: Yes (PARTIAL) Neurologic Surgery: Yes (CERVICAL FUSION 2013) Oral Surgery: Yes (WISDOM TOOTH REMOVAL) Other Surgery: Yes Family History Family Myocardial Infarction: Yes Social History Alcohol Use: No Tobacco Use: No Substance Use: No Allergies-Medications (Allergen,Severity, Reaction): Coded Allergies: egg (Unverified Allergy, Severe, SHOCK, 06/25/17) melon (Unverified Allergy, Severe, EDEMA THROAT, 06/25/17) peanut (Unverified Allergy, Severe, SHOCK, 06/25/17) peas (Unverified Allergy, Severe, THROAT CLOSES, 06/25/17) shellfish derived (Unverified Allergy, Severe, THROAT CLOSES, 06/25/17) hazelnut (Unverified Allergy, Intermediate, THROAT CLOSES, 06/25/17) diphenhydramine (Unverified Allergy, Mild, ITCHY AND SWEATY, 06/25/17) sulfamethoxazole (Unverified Allergy, Unknown, Rash, 06/25/17) trimethoprim (Unverified Allergy, Unknown, Rash, 06/25/17) tramadol (Unverified Adverse Reaction, Severe, 06/25/17) FLUSHING Reported Meds & Prescriptions Reported Meds & Active Scripts Active Robaxin (Methocarbamol) 500 Mg Tab 1,000 Mg PO QID 7 Days Ranitidine (Ranitidine HCl) 150 Mg Tab 150 Mg PO BID Reported Ditropan (Oxybutynin Chloride) 5 Mg Tab 5 Mg PO Q8HR Percocet (Oxycodone-Acetaminophen) 10-325 mg Tab 1 Tab PO Q4H PRN Prozac (Fluoxetine HCl) 20 Mg Cap 30 Mg PO DAILY Chelle Allergy (Fexofenadine HCl) 60 Mg Tab 60 Mg PO BID Review of Systems General / Constitutional: No: Fever Eyes: No: Visual changes HENT: Positive: Neck Stiffness, Neck Pain, No: Headaches Cardiovascular: No: Chest Pain or Discomfort Respiratory: No: Shortness of Breath Gastrointestinal: No: Abdominal Pain Genitourinary: No: Dysuria Musculoskeletal: No: Pain Skin: No Rash Neurologic: No: Weakness Psychiatric: No: Depression Endocrine: No: Polydipsia Hematologic/Lymphatic: No: Easy Bruising Physical Exam Narrative GENERAL: Well-developed, well-nourished in no acute distress. Nontoxic appearing. HEAD: Normocephalic, atraumatic. EYES: Pupils equal round and reactive. Extraocular motions intact. No scleral icterus. No injection or drainage. ENT: TMs clear without erythema. The external auditory canals clear. Nose: clear . Posterior pharynx is pink and moist. No tonsillar edema or exudate. Uvula midline. Airway patent. NECK: Trachea midline.no central bony tenderness. Patient has bilateral paraspinal tenderness and spasm. Decreased range of motion. CARDIOVASCULAR: Regular rate and rhythm without murmurs, gallops, or rubs. RESPIRATORY: Clear to auscultation. Breath sounds equal bilaterally. No wheezes , rales, or rhonchi. GASTROINTESTINAL: Abdomen soft, non-tender, nondistended. No hepato-splenomegaly , or palpable masses. No guarding. EXTREMITIES: No clubbing, cyanosis, or edema. No joint tenderness, effusion, or edema noted. BACK: Nontender without deformity or crepitance. No flank tenderness. Data Data Last Documented VS Vital Signs Date Time Temp Pulse Resp B/P (MAP) Pulse Ox O2 Delivery O2 Flow Rate FiO2 06/25/17 22:20 98.1 90 16 188/88 (121) 100 Room Air Orders Orders Spine, Cervical - Ltd (Ap&Lat) (06/25/17 22:39) Diazepam (Valium) (06/25/17 22:45) MDM Medical Decision Making Medical Screen Exam Complete: Yes Emergency Medical Condition: Yes Medical Record Reviewed: Yes Interpretation(s) Cervical spine: Negative for acute fracture. Prior fusion. Differential Diagnosis Differential diagnoses: Acute neck pain, chronic neck pain, degenerative disc disease Narrative Course Patient is given Valium 10 mg by mouth. Patient is in pain management. I agreed to increase her Robaxin to 1000 mg 4 times a day and have her follow back with her pain management doctor this week. This acute exacerbation chronic neck pain Diagnosis Primary Impression: acute exacerbation of chronic neck pain Patient Instructions: General Instructions, Narcotic given in the ED Additional Instructions: Rest. Ice for the next 3 days followed by heat . Continue her home medications. Increase your Robaxin to 1000 mg 4 times daily. Follow-up with a primary care doctor as well as her pain management doctor in 2- 3 days. Consider physical therapy. Return to the ER for emergencies. Med/Other Pt SpecificInfo: Prescription(s) given Scripts Methocarbamol (Robaxin) 500 Mg Tab 1000 MG PO QID for Muscle Spasm for 7 Days, TAB 0 Refills Prov: Tomy Chavez MD 06/25/17 Disposition: 01 DISCHARGE HOME Condition: Stable Mau Taylor Jun 25, 2017 22:47
--- NOTE | 2017-06-25 23:00 | RADRPT ---
EXAM DATE/TIME: 06/25/2017 22:46 [facility] COMPARISON: No previous studies available for comparison. INDICATIONS : Pain in neck, previous surgery in 2014 . MEDICAL HISTORY : None. SURGICAL HISTORY : ACDF c4-c7 ENCOUNTER: Initial ACUITY: 1 day PAIN SCORE: 10/10 LOCATION: Bilateral neck FINDINGS: Anterior cervical plate at C4-C7 with intact hardware. There is reversal of the cervical lordosis at C2 and C3 without evidence of spondylolisthesis. No compression deformity seen. The atlantoaxial a rticulation is intact. Prevertebral soft tissues are normal in thickness. CONCLUSION: 1. Intact ACF C4-7. 2. No evidence of compression deformity or spondylolisthesis. Jerod Sharma MD on June 25, 2017 at 22:57 Board Certified Radiologist. This report was verified electronically.
== END 2017-06-25 23:45 | disposition home or self-care (01) ==
LOC: NEPD 22:17
DX: M54.2 Cervicalgia (principal); G89.29 Other chronic pain; K21.9 Gastro-esophageal reflux disease without esophagitis
CPT/HCPCS: 72040; 99283

== ENCOUNTER 2017-07-07 18:47 | Emergency (ER) | payer OTHER, MEDICAID ==
[~2017-07-07] VITALS: Ht 152.4 cm; Wt 50.0 kg
[~2017-07-07 18:47] MED LIST changes: -FENT25DI T-DERMAL; +OXYB5TAB8 PO; +ROBA500T PO; -ZOFR4TAB3 SL
[2017-07-07 18:49] VITALS: BP 188/91; PULSE 99; RESP 16; TEMP 97.9; O2SAT 100
[2017-07-07] MEDS ORDERED: KETOROLAC TROMETHAMINE 60 MG/2 ML (IM) VIAL IM ONE (19:30)
[2017-07-07] MEDS ORDERED: DEXAMETHASONE SOD PHOS 4 MG/ML VIAL IM ONE (19:30)
[2017-07-07] MEDS ORDERED: ROBA750T PO (19:35)
[2017-07-07] MEDS ORDERED: PRED20 PO (19:35)
--- NOTE | 2017-07-07 19:35 | PD ---
HPI Chief Complaint: Musculoskeletal Complaint Time Seen by Provider: 19:16 Travel History International Travel<30 days: No Contact w/Intl Traveler<30days: No Traveled to known affect area: No History of Present Illness HPI 46-year-old female complains of increasing neck pain and numbness sensation on the right arm. Patient has history of chronic neck pain status post cervical fusion surgery 3 years ago. Patient has been seen by personal physician and pain management. Patient awaiting MRI and referral for neurosurgery. Patient has been taking Percocet 10 and Robaxin for pain. Patient states that she has increasing pain or neck area with radiation down the right arm for the past 2 days. Patient states that she has intermittent numbing sensation on the right arm for the past 2 days also. Patient denies any recent injury. Patient denies any fever chills. Patient denies any chest pain or shortness of breath. On a scale of 1-10 the pain is a 10. PFSH Past Medical History Arthritis: Yes (RA) Asthma: Yes Blood Disorders: No Anxiety: Yes Depression: Yes Heart Rhythm Problems: No Cancer: No Cardiac Catheterization: No Cardiovascular Problems: Yes High Cholesterol: No Chest Pain: Yes Congestive Heart Failure: No Diabetes: No Diminished Hearing: No Endocrine: No Gastrointestinal Disorders: Yes GERD: Yes Genitourinary: Yes (UTI, bladder spams) Heparin Induced Thrombocytopen: No Hypertension: Yes Immune Disorder: No Musculoskeletal: No Neurologic: Yes (SPINAL STENOSIS) Psychiatric: Yes Respiratory: Yes (ASTHMA) Immunizations Current: No Pneumonia: Yes Thyroid Disease: No Tetanus Vaccination: < 5 Years Influenza Vaccination: No ?: Not : 5 Para: 4 Miscarriage: 1 Tubal Ligation: Yes Past Surgical History Coronary Artery Bypass Graft: No Hysterectomy: Yes (PARTIAL) Neurologic Surgery: Yes (CERVICAL FUSION 2013) Oral Surgery: Yes (WISDOM TOOTH REMOVAL) Other Surgery: Yes Family History Family Myocardial Infarction: Yes Social History Alcohol Use: No Tobacco Use: No Substance Use: No Allergies-Medications (Allergen,Severity, Reaction): Coded Allergies: egg (Unverified Allergy, Severe, SHOCK, 07/07/17) melon (Unverified Allergy, Severe, EDEMA THROAT, 07/07/17) peanut (Unverified Allergy, Severe, SHOCK, 07/07/17) peas (Unverified Allergy, Severe, THROAT CLOSES, 07/07/17) shellfish derived (Unverified Allergy, Severe, THROAT CLOSES, 07/07/17) hazelnut (Unverified Allergy, Intermediate, THROAT CLOSES, 07/07/17) diphenhydramine (Unverified Allergy, Mild, ITCHY AND SWEATY, 07/07/17) sulfamethoxazole (Unverified Allergy, Unknown, Rash, 07/07/17) trimethoprim (Unverified Allergy, Unknown, Rash, 07/07/17) tramadol (Unverified Adverse Reaction, Severe, 07/07/17) FLUSHING Reported Meds & Prescriptions Reported Meds & Active Scripts Active Robaxin (Methocarbamol) 500 Mg Tab 1,000 Mg PO QID 7 Days Ranitidine (Ranitidine HCl) 150 Mg Tab 150 Mg PO BID Reported Ditropan (Oxybutynin Chloride) 5 Mg Tab 5 Mg PO Q8HR Percocet (Oxycodone-Acetaminophen) 10-325 mg Tab 1 Tab PO Q4H PRN Prozac (Fluoxetine HCl) 20 Mg Cap 30 Mg PO DAILY Chelle Allergy (Fexofenadine HCl) 60 Mg Tab 60 Mg PO BID Review of Systems General / Constitutional: No: Fever Eyes: No: Visual changes HENT: Positive: Neck Pain, No: Headaches Cardiovascular: No: Chest Pain or Discomfort Respiratory: No: Shortness of Breath Gastrointestinal: No: Abdominal Pain Genitourinary: No: Dysuria Musculoskeletal: No: Pain Skin: No Rash Neurologic: Positive: Paresthesia, No: Weakness Psychiatric: No: Depression Endocrine: No: Polydipsia Hematologic/Lymphatic: No: Easy Bruising Physical Exam Narrative GENERAL: Well-nourished, well-developed patient. SKIN: Focused skin assessment warm/dry. HEAD: Normocephalic. EYES: No scleral icterus. No injection or drainage. NECK: Supple, trachea midline. No JVD or lymphadenopathy. Patient has moderate tenderness on palpation paraspinal areas cervical spine. No midline tenderness. CARDIOVASCULAR: Regular rate and rhythm without murmurs, gallops, or rubs. RESPIRATORY: Breath sounds equal bilaterally. No accessory muscle use. GASTROINTESTINAL: Abdomen soft, non-tender, nondistended. MUSCULOSKELETAL: No cyanosis, or edema. Examination the right arm diffuse diffuse tenderness over the right shoulder past, right shoulder and right arm. No redness swelling no rash noted. Full range of motion all extremity. BACK: Nontender without obvious deformity. No CVA tenderness. Neurologic exam: Patient is awake alert oriented 3. Patient can moves all extremity well. No obvious focal neurological deficit. Data Data Last Documented VS Vital Signs Date Time Temp Pulse Resp B/P (MAP) Pulse Ox O2 Delivery O2 Flow Rate FiO2 07/07/17 18:49 97.9 99 16 188/91 (123) 100 Room Air Orders Orders Ketorolac Inj (Toradol Inj) (07/07/17 19:30) Dexamethasone Inj (Decadron Inj) (07/07/17 19:30) [facility] Medical Decision Making Medical Screen Exam Complete: Yes Emergency Medical Condition: Yes Differential Diagnosis Differential diagnosis including cervical radiculopathy, acute on chronic pain. Narrative Course 46-year-old female with exacerbation of neck pain and increasing pain and numbness sensation right arm. History of chronic neck pain status post cervical fusion in the past. Toradol 60 mg IM. Decadron 8 mg IM. Diagnosis Primary Impression: Cervical radiculopathy Patient Instructions: General Instructions Additional Instructions: Take medications as directed. Follow-up with personal physician. Return if worse. Med/Other Pt SpecificInfo: Prescription(s) given Scripts Prednisone (Prednisone) 20 Mg Tab 20 MG PO BID, #10 TAB 0 Refills Prov: Jonatan Don MD 07/07/17 Methocarbamol (Robaxin) 750 Mg Tab 750 MG PO QID for Muscle Spasm, #60 TAB 0 Refills Prov: Jonatan Don MD 07/07/17 Disposition: 01 DISCHARGE HOME Condition: Stable Jonatan Don MD Jul 07, 2017 19:35
[2017-07-07 19:59] VITALS: BP 167/91; PULSE 87; RESP 18; O2SAT 100
[2017-07-07 20:23] VITALS: BP 126/65; PULSE 94; RESP 18; O2SAT 100
== END 2017-07-07 20:24 | disposition home or self-care (01) ==
LOC: NEPE 18:47
DX: M54.12 Radiculopathy, cervical region (principal); G89.29 Other chronic pain; M48.00 Spinal stenosis, site unspecified; I10 Essential (primary) hypertension; F32.9 Major depressive disorder, single episode, unspecified; F41.9 Anxiety disorder, unspecified; J45.909 Unspecified asthma, uncomplicated; K21.9 Gastro-esophageal reflux disease without esophagitis
CPT/HCPCS: 96372; 99284; J1100; J1885

== ENCOUNTER 2017-09-13 19:14 | Emergency (ER) | payer OTHER, MEDICAID ==
[~2017-09-13] VITALS: Ht 152.4 cm; Wt 56.0 kg
[~2017-09-13 19:14] MED LIST changes: +PRED20 PO; +ROBA750T PO
[2017-09-13 20:28] VITALS: BP 154/74; PULSE 106; TEMP 100.1; O2SAT 100
== END 2017-09-13 22:34 | disposition left against medical advice (07) ==
LOC: NED 19:14
DX: R55 Syncope and collapse (principal)
CPT/HCPCS: 99281

== ENCOUNTER 2017-09-14 10:58 | Emergency (ER) | payer OTHER, MEDICAID ==
[~2017-09-14] VITALS: Ht 152.4 cm; Wt 60.0 kg
[2017-09-14 11:02] VITALS: BP 133/65; PULSE 105; RESP 18; TEMP 99.1; O2SAT 100
--- NOTE | 2017-09-14 14:16 | PD ---
HPI Chief Complaint: Cold / Flu Symptoms Time Seen by Provider: 13:00 Travel History International Travel<30 days: No Contact w/Intl Traveler<30days: No Traveled to known affect area: No History of Present Illness HPI This patient complains of runny nose and congestion and body aches. Duration 2 days. Severity is moderate. No documented fevers. PFSH Past Medical History Arthritis: Yes (RA) Asthma: Yes Blood Disorders: No Anxiety: Yes Depression: Yes Heart Rhythm Problems: No Cancer: No Cardiac Catheterization: No Cardiovascular Problems: Yes High Cholesterol: No Chest Pain: Yes Congestive Heart Failure: No Diabetes: No Diminished Hearing: No Endocrine: No Gastrointestinal Disorders: Yes GERD: Yes Genitourinary: Yes (UTI, bladder spams) Heparin Induced Thrombocytopen: No Hypertension: Yes Immune Disorder: No Musculoskeletal: No Neurologic: Yes (SPINAL STENOSIS) Psychiatric: Yes Respiratory: Yes (ASTHMA) Immunizations Current: Yes Pneumonia: Yes Thyroid Disease: No : 5 Para: 4 Miscarriage: 1 Tubal Ligation: Yes Past Surgical History Coronary Artery Bypass Graft: No Hysterectomy: Yes (PARTIAL) Neurologic Surgery: Yes (CERVICAL FUSION 2013) Oral Surgery: Yes (WISDOM TOOTH REMOVAL) Other Surgery: Yes Social History Alcohol Use: No Tobacco Use: No Substance Use: No Allergies-Medications (Allergen,Severity, Reaction): Coded Allergies: egg (Unverified Allergy, Severe, SHOCK, 09/14/17) melon (Unverified Allergy, Severe, EDEMA THROAT, 09/14/17) peanut (Unverified Allergy, Severe, SHOCK, 09/14/17) peas (Unverified Allergy, Severe, THROAT CLOSES, 09/14/17) shellfish derived (Unverified Allergy, Severe, THROAT CLOSES, 09/14/17) hazelnut (Unverified Allergy, Intermediate, THROAT CLOSES, 09/14/17) diphenhydramine (Unverified Allergy, Mild, ITCHY AND SWEATY, 09/14/17) sulfamethoxazole (Unverified Allergy, Unknown, Rash, 09/14/17) trimethoprim (Unverified Allergy, Unknown, Rash, 09/14/17) tramadol (Unverified Adverse Reaction, Severe, 09/14/17) FLUSHING Reported Meds & Prescriptions Reported Meds & Active Scripts Active Prednisone 20 Mg Tab 20 Mg PO BID Robaxin (Methocarbamol) 750 Mg Tab 750 Mg PO QID Robaxin (Methocarbamol) 500 Mg Tab 1,000 Mg PO QID 7 Days Ranitidine (Ranitidine HCl) 150 Mg Tab 150 Mg PO BID Reported Ditropan (Oxybutynin Chloride) 5 Mg Tab 5 Mg PO Q8HR Percocet (Oxycodone-Acetaminophen) 10-325 mg Tab 1 Tab PO Q4H PRN Prozac (Fluoxetine HCl) 20 Mg Cap 30 Mg PO DAILY Chelle Allergy (Fexofenadine HCl) 60 Mg Tab 60 Mg PO BID Review of Systems HENT: Positive: Congestion, No: Headaches Cardiovascular: No: Chest Pain or Discomfort Respiratory: Positive: Cough Physical Exam Narrative RESPIRATORY: Respiratory effort unlabored, no retractions or use of accessory muscles. Breath sounds are clear and symmetric. CARDIOVASCULAR: Regular rate and rhythm without murmur. Extremities showed no edema or varicosities. GASTROINTESTINAL: Abdomen soft, non-tender, nondistended. Positive bowel sounds. No hepato-splenomegaly, or palpable masses. No guarding. Data Data Last Documented VS Vital Signs Date Time Temp Pulse Resp B/P (MAP) Pulse Ox O2 Delivery O2 Flow Rate FiO2 09/14/17 13:00 20 96 Room Air 09/14/17 11:02 99.1 105 133/65 (87) Orders Orders Influenzae A/B Antigen (09/14/17 11:06) MDM Medical Decision Making Medical Screen Exam Complete: Yes Emergency Medical Condition: Yes Medical Record Reviewed: Yes Differential Diagnosis Flu syndrome, pneumonia, bronchitis Narrative Course I have reviewed the patient's electronic medical record. Influenza swab is positive for influenza B Supportive care discussed Stable for outpatient follow-up Diagnosis Primary Impression: Influenza B Additional Instructions: The patient was advised to follow up with their physician and return if they worsen. Med/Other Pt SpecificInfo: Other Disposition: 01 DISCHARGE HOME Condition: Stable Jam Moore MD Sep 14, 2017 14:16
== END 2017-09-14 14:23 | disposition home or self-care (01) ==
LOC: NEPD 10:58
DX: J11.1 Influenza due to unidentified influenza virus with other respiratory manifestations (principal); M06.9 Rheumatoid arthritis, unspecified; J45.909 Unspecified asthma, uncomplicated; F41.9 Anxiety disorder, unspecified; F32.9 Major depressive disorder, single episode, unspecified; K21.9 Gastro-esophageal reflux disease without esophagitis; I10 Essential (primary) hypertension; Z79.899 Other long term (current) drug therapy; Z88.2 Allergy status to sulfonamides
CPT/HCPCS: 87804; 99283